=== PATIENT | male | born 1975 | race Caucasian/White ===

== ENCOUNTER 2023-02-02 20:14 | Emergency (ER) | payer OTHER, SELFPAY ==
[2023-02-02 20:38] VITALS: BP 164/96; PULSE 94; RESP 20; TEMP 36.7; O2SAT 100; BMI 54.9
--- NOTE | 2023-02-02 20:50 | XR_ITS ---
The [address] [address] Patient Name: ARELI BACA MRN: [id number] date: 1975 Sex: M Assigned Patient Location: ER Current Patient Location: ER Accession/Order Number: [id number] Exam Date: 02/02/2023 21:00 Report Date: 02/02/2023 22:09 At the request of: AMISH FISHER Procedure: XR shoulder RT min 2V EXAM: XR shoulder RT min 2V HISTORY: Right shoulder pain COMPARISON: None. TECHNIQUE: 4 views FINDINGS: No osseous lesion, fracture, dislocation or subluxation. Joint spaces are normal. No visualized effusion. No visualized soft tissue edema. XR/XR shoulder RT min 2V IMPRESSION: Normal x-rays Electronically authenticated by: HUBER KILPATRICK Date: 02/02/2023 22:09
--- NOTE | 2023-02-02 22:02 | ED_ITS ---
HPI - Extremity Injury (Upper) General Chief Complaint: Extremity Injury, Upper Stated Complaint: SHOULDER PAIN Time Seen by Provider: 02/02/23 21:58 Source: patient Mode of arrival: walk-in Limitations: no limitations History of Present Illness HPI narrative: patient presents complaining of pain of the right shoulder for 2 weeks. States prescribed Flexeril and is not receiving any relief. No recent injury. No we akness or numbness. Related Data Allergies Allergy/AdvReac Type Severity Reaction Status Date / Time lisinopril Allergy Severe Anaphylaxis Verified 02/02/23 20:38 Review of Systems ROS Status of ROS 10 or more systems reviewed and unremarkable except as noted in history and below [facility] Medical History (Updated 02/02/23 @ 22:08 by Luke Ibanez MD) Surgical History (Updated 02/02/23 @ 20:49 by Dk Eason) Exam Constitutional Vital Signs, click to edit/add: Last Vital Signs Temp 98.1 F 02/02/23 20:38 Pulse 94 H 02/02/23 20:38 Resp 02/02/23 20:38 BP 164/96 H 02/02/23 20:38 Pulse Ox 100 02/02/23 20:38 O2 Del Method Room Air 02/02/23 20:38 Common normals: no apparent distress, oriented x3, alert and well nourished [facility] Common normals: normocephalic, head/scalp atraumatic and hearing grossly normal bilaterally Respiratory Common normals: normal respiratory effort, no retractions, no use of accessory muscles and clear to auscultation bilaterally Cardio Common normals: regular rate, regular rhythm, S1 normal heart sound and S2 normal heart sound Extremity Other: right shoulder and right superior trapezius mild tenderness. No deformity of the shoulder. FROM of the shoulder but uncomfortable Neuro Common normals: oriented x3, CN's II-XII intact bilaterally, moves all extremities, no focal motor deficits and no sensory deficits noted Psych Appearance: grossly normal Course Vital Signs Vital signs: Vital Signs Temperature 98.1 F 02/02/23 20:38 Pulse Rate 94 H 02/02/23 20:38 Respiratory Rate 20 02/02/23 20:38 Blood Pressure 164/96 H 02/02/23 20:38 Pulse Oximetry 100 02/02/23 20:38 Oxygen Delivery Method Room Air 02/02/23 20:38 Temperature 98.1 F 02/02/23 20:38 Pulse Rate 94 H 02/02/23 20:38 Respiratory Rate 20 02/02/23 20:38 Blood Pressure 164/96 H 02/02/23 20:38 Pulse Oximetry 100 02/02/23 20:38 Oxygen Delivery Method Room Air 02/02/23 20:38 MDM - Extremity Injury (Upper) MDM Narrative Medical decision making narrative: presents with ongoing right shoulder pain . Not improving with flexeril. xray of the shoulder is neg. exam findings of tendinitis or strain. Will have him continue flexeril and add anti inflammatory prednisone . Discharge Plan Discharge Chief Complaint: Extremity Injury, Upper Clinical Impression: Right shoulder tendinitis Instructions: Tendinitis (ED) Stand Alone Forms: Portal Instructions Referrals: Physician,Non-Staff, MD [Primary Care Provider] - 1 week
[2023-02-02] MEDS: PREDNISONE 20 MG TABLET 40 MG PO (22:21)
== END 2023-02-02 22:24 | disposition home or self-care (01) ==
PROVIDERS: Emergency Provider Internal Medicine
DX: M77.8 Other enthesopathies, not elsewhere classified (principal)
CPT/HCPCS: 73030; 99283